=== PATIENT | male | born 1980 | race Caucasian/White ===

== ENCOUNTER 2021-01-02 18:35 | Inpatient (IN) | payer OTHER ==
[2021-01-02 19:12] VITALS: BMI 26.4
[2021-01-02] MEDS ORDERED: MAG HYDROX/AL HYDROX/SIMETH 30 ML UNIT-DOSE CUP PO PRN (19:18)
[2021-01-02] MEDS ORDERED: MENTHOL/PHENOL 1 EACH UD MM PRN (19:18)
[2021-01-02] MEDS ORDERED: IBUPROFEN 400 MG TABLET (FP) PO PRN (19:18)
[2021-01-02] MEDS ORDERED: MAGNESIUM CITRATE 300 ML BOTTLE PO PRN (19:18)
[2021-01-02] MEDS ORDERED: MAGNESIUM HYDROX 2400MG/30ML ORAL SUSPENSION 30 ML CUP PO PRN (19:18)
[2021-01-02] MEDS ORDERED: ACETAMINOPHEN 325 MG TABLET (FP) PO PRN ×2 (19:18)
[2021-01-02] MEDS ORDERED: NALOXONE HCL 0.4 MG/ML VIAL IM PRN (19:18)
[2021-01-02] MEDS ORDERED: cloNIDine HCL 0.1 MG TABLET PO PRN (19:18)
[2021-01-02] MEDS ORDERED: METHADONE HCL 10 MG TABLET (FOR DETOX USE ONLY) PO ONE (19:18)
[2021-01-02] MEDS ORDERED: BISMUTH SUBSALICYLATE 524 MG/30 ML UD PO PRN (19:18)
[2021-01-02] MEDS: THIAMINE HCL 100 MG TABLET (FP) PO SCH (22:21)
[2021-01-02] MEDS: MELATONIN 5 MG TABLETS PO SCH (22:21)
[2021-01-03] MEDS ORDERED: METHADONE HCL 10 MG TABLET (FOR DETOX USE ONLY) ONE (09:40)
[2021-01-03] MEDS ORDERED: METHADONE HCL 5 MG TABLET (FOR DETOX USE ONLY) ONE (09:41)
[2021-01-03] MEDS ORDERED: METHADONE (DETOX) 20 MG, METHADONE (DETOX) 5 MG PO ONE (10:00)
[2021-01-03] MEDS: METHOCARBAMOL 500 MG TABLET PO PRN ×2 (10:23→22:38)
[2021-01-03] MEDS: PRENATAL VITAMINS W/ FOLIC ACID TABLET (FP) PO SCH (10:23)
[2021-01-03 11:06] LABS: HEMOGLOBIN 13.7 GM/dL (11.7-16.9); MCH 28.1 pg (25.7-33.7); MCHC 33.3 g/dl (32.0-35.9); MEAN CELL VOLUME 84.4 fl (80-96); MEAN PLT VOLUME 9.8 fl (7.5-11.1); PLATELET COUNT 204 K/MM3 (134-434); RBC 4.86 M/mm3 (4.00-5.60); WHITE BLOOD COUNT 6.7 K/mm3 (4.0-10.0)
[2021-01-03 11:19] LABS: ALBUMIN 3.9 g/dl (3.4-5.0); BLOOD UREA NITROGEN 9.6 mg/dL (7-18); CALCIUM 8.8 mg/dL (8.5-10.1)
[2021-01-03 11:22] LABS: CREATININE 0.7 mg/dL (0.55-1.3)
[2021-01-03 11:24] LABS: BILIRUBIN,TOTAL 1.2 mg/dL (0.2-1); TOT PROT 6.5 g/dl (6.4-8.2)
[2021-01-03 12:16] LABS: HIV INTERPRETATION NEGATIVE (NEGATIVE)
[2021-01-03] MEDS: NICOTINE 21 MG/24 HOURS TOPICAL PATCH TD SCH (14:06)
[2021-01-03] MEDS: QUEtiapine FUMARATE 50 MG TABLET PO SCH (22:38)
[2021-01-03] MEDS: THIAMINE HCL 100 MG TABLET (FP) PO SCH (22:38)
[2021-01-03] MEDS: MELATONIN 5 MG TABLETS PO SCH (22:38)
[2021-01-04] MEDS ORDERED: METHADONE HCL 10 MG TABLET (FOR DETOX USE ONLY) PO ONE (10:00)
[2021-01-04] MEDS: PRENATAL VITAMINS W/ FOLIC ACID TABLET (FP) PO SCH (10:19)
[2021-01-04] MEDS: NICOTINE 21 MG/24 HOURS TOPICAL PATCH TD SCH (10:20)
[2021-01-04] MEDS: METHOCARBAMOL 500 MG TABLET PO PRN (10:22)
[2021-01-04] MEDS: MELATONIN 5 MG TABLETS PO SCH (22:16)
[2021-01-04] MEDS: QUEtiapine FUMARATE 50 MG TABLET PO SCH (22:17)
[2021-01-04] MEDS: THIAMINE HCL 100 MG TABLET (FP) PO SCH (22:17)
[2021-01-05 06:06] LABS: SARS-CoV-2 NAA Not Detected (Not Detected)
[2021-01-05] MEDS ORDERED: METHADONE HCL 10 MG TABLET (FOR DETOX USE ONLY) ONE (09:17)
[2021-01-05] MEDS ORDERED: METHADONE HCL 5 MG TABLET (FOR DETOX USE ONLY) ONE (09:17)
[2021-01-05] MEDS ORDERED: METHADONE (DETOX) 10 MG, METHADONE (DETOX) 5 MG PO ONE (10:00)
[2021-01-05] MEDS: NICOTINE 21 MG/24 HOURS TOPICAL PATCH TD SCH (10:12)
[2021-01-05] MEDS: PRENATAL VITAMINS W/ FOLIC ACID TABLET (FP) PO SCH (10:12)
[2021-01-05] MEDS: QUEtiapine FUMARATE 50 MG TABLET PO SCH (22:15)
[2021-01-05] MEDS: THIAMINE HCL 100 MG TABLET (FP) PO SCH (22:15)
[2021-01-05] MEDS: MELATONIN 5 MG TABLETS PO SCH (22:15)
[2021-01-06] MEDS: PRENATAL VITAMINS W/ FOLIC ACID TABLET (FP) PO SCH (09:27)
[2021-01-06] MEDS: NICOTINE 21 MG/24 HOURS TOPICAL PATCH TD SCH (09:28)
[2021-01-06] MEDS ORDERED: METHADONE HCL 10 MG TABLET (FOR DETOX USE ONLY) PO ONE (10:00)
[2021-01-06] MEDS: MELATONIN 5 MG TABLETS PO SCH (22:12)
[2021-01-06] MEDS: THIAMINE HCL 100 MG TABLET (FP) PO SCH (22:12)
[2021-01-06] MEDS: QUEtiapine FUMARATE 50 MG TABLET PO SCH (22:12)
[2021-01-07] MEDS ORDERED: METHADONE HCL 5 MG TABLET (FOR DETOX USE ONLY) PO ONE (06:00)
[2021-01-07 09:05] VITALS: BP 116/73; PULSE 64; TEMP 96.6
== END 2021-01-07 09:18 | disposition home or self-care (01) | DRG 773 ==
LOC: YASAS 18:35 → Y3N 19:11
PROVIDERS: ADMIT Allergy & Immunology; ATTEND Allergy & Immunology
PROC: HZ2ZZZZ Detoxification Services for Substance Abuse Treatment (ICD-10-PCS; principal; 2021-01-02)
DX: F11.23 Opioid dependence with withdrawal (principal); F12.20 Cannabis dependence, uncomplicated; F17.290 Nicotine dependence, other tobacco product, uncomplicated; F19.24 Other psychoactive substance dependence with psychoactive substance-induced mood disorder; F31.9 Bipolar disorder, unspecified; G47.00 Insomnia, unspecified; Z91.19 Patient's noncompliance with other medical treatment and regimen
CPT/HCPCS: 36415; 80053; 85027; 86780; 87389; 93005; 93010; C9803; J0735; U0003; U0005